=== PATIENT | female | born 1955 | race Caucasian/White ===

== ENCOUNTER → 2019-06-06 | Day surgery (SDC) | payer OTHER ==
[2019-06-03 15:14] LABS: BASOPHILS % 0.6 % (0.0-1.0); EOSINOPHILS # (AUTO) 0.1 (0.0-0.4); EOSINOPHILS % 1.6 % (0.0-6.0); HEMATOCRIT 41.2 % (34.2-44.1); LYMPHOCYTES # (AUTO) 1.2 (1.0-3.2); LYMPHOCYTES % 23.5 % (18.0-39.1); MEAN CORPUSCULAR HEMOGLOBIN 30.8 pg (28-32); MEAN CORPUSCULAR VOLUME 90.7 fL (81-99); MONOCYTES # (AUTO) 0.4 (0.2-0.8); MONOCYTES % 8.5 % (4.4-11.3); NEUTROPHILS # (AUTO) 3.3 (2.1-6.9); NEUTROPHILS % 65.4 % (38.7-80.0); PLATELET COUNT 226 x10e3/uL (140-360); RED BLOOD COUNT 4.54 x10e6/uL (3.6-5.1); RED CELL DISTRIBUTION WIDTH 13.7 % (11.7-14.4)
[2019-06-03 15:29] LABS: ANION GAP 17.5 mmol/L (8-16); BLOOD UREA NITROGEN 18 mg/dL (7-26); BUN/CREATININE RATIO 23 (6-25); CALCIUM 9.9 mg/dL (8.4-10.2); CARBON DIOXIDE 25 mmol/L (22-29); CHLORIDE 103 mmol/L (98-107); EST GLOMERULAR FILTRATION RATE > 60 ML/MIN (60-); GLUCOSE 95 mg/dL (74-118); POTASSIUM 4.5 mmol/L (3.5-5.1); SODIUM 141 mmol/L (136-145)
--- NOTE | 2019-06-03 15:50 | Diagnostic Imaging Report ---
EXAMINATION: CHEST 2 VIEWS INDICATION: Pre-operative COMPARISON: None FINDINGS: LINES/TUBES:None LUNGS:The lungs are well-inflated. No focal consolidation or pulmonary edema. PLEURA:No pleural effusion or pneumothorax. MEDIASTINUM:The cardiomediastinal silhouette appears normal in size and shape. Atherosclerotic calcifications of the thoracic aorta. BONES/SOFT TISSUES:No acute osseous injury. ABDOMEN:No free air under the diaphragm. IMPRESSION: No focal pneumonia or pulmonary edema. Signed by: Eyad Dobson MD on 06/03/2019 3:47 PM
[~2019-06-06] MED LIST: ASPIRIN325 MG PO; BUPIVACAINE HCL 0.5% INJ 30 ML VIAL INJ ONE; CEFAZOLIN SOD 1 GM/NS 50ML 100 ML IV ONE; DEXAMETHASONE SOD PHOS INJ 4 MG/ML VIAL ONE; FENTANYL CITRATE/PF 100MCG/2 ML INJ ONE; HYDROMORPHONE 2MG/ML 2 MG/ML ML ONE; LIDOCAINE HCL 2% LOCAL INJ 5 ML SDV VIAL INJ ONE; MIDAZOLAM HCL 2 MG/2 ML VIAL ONE; NEOSTIGMINE 1 MG/ML 10ML VIAL ONE; NORCO 7.5-3251 EACH PO; ONDANSETRON HCL INJ 2MG/ML 2ML 2 MG/ML VIAL ONE; PROPOFOL IV EMULSION 10 MG/ML 20 ML VIAL ONE; SEVOFLURANE INHAL SOLN 250 ML PEN BTL ONE; Z.0.LEVOTHYROXINE50 PO; Z.0.METOPROLOL TART2 PO; Z.0.TRICOR145 MG PO; [UNRECOGNIZED DRUG - OTHER] PO
--- OUTSIDE RECORDS SUMMARY | 2019-06-06 08:56 | XMS REPORT ---
Author Author [facility] Address Unknown Phone Unavailable Care Team Providers Care Director Of Home Health Services Name Role Phone DAPHNE SANTILLAN Unavailable Unavailable Problems This patient has no known problems. Allergies, Adverse Reactions, Alerts This patient has no known allergies or adverse reactions. Medications This patient has no known medications. Results Test Description Test Time Test Comments Text Results Atomic Results Result Comments CHEST 2 VIEWS 2019-06-03 15:46:00 [facility] [address] [place] [address] Patient Name: NIXON TONY MR #: [id number] : 1955 Age/Sex: 64/F Req #: [id number] Adm Physician: Ordered by: DAPHNE SANTILLAN DPM Report #: [id number] Location: OR Room/Bed: Procedure: [id number] DX/CHEST 2 VIEWS Exam Date: 06/03/19 Exam Time: 1440 REPORT STATUS: Signed EXAMINATION: CHEST 2 VIEWS INDICATION: Pre-operative COMPARISON: None FINDINGS: LINES/TUBES:None LUNGS:The lungs are well-inflated. No focal consolidation or pulmonary edema. PLEURA:No pleural effusion or pneumothorax. MEDIASTINUM:The cardiomediastinal silhouette appears normal in size and shape. Atherosclerotic calcifications of the thoracic aorta. BONES/SOFT TISSUES:No acute osseous injury. ABDOMEN:No free air under the diaphragm. IMPRESSION: No focal pneumonia or pulmonary edema. Signed by: Miriam Hatfield MD on 06/03/2019 3:47 PM Dictated By: MIRIAM HATFIELD MD 46 Transcribed By: EN on 06/03/191546 COPY TO: DAPHNE SANTILLAN DPM BREAST ULTRASOUND BILATERAL 2019-05-14 16:13:30 - BREAST ULTRASOUND BILATERALULTRASOUND OF BOTH BREASTS AND BOTH AXILLA: 05/14/2019CLINICAL: Late 12 month follow up/prior exam. Comparison is made to exam [facility] Real-time ultrasound of both breasts and both axilla was performed. No abnormalities were seen sonographically in the left breast or either axilla. There is a circumscribed slightly heterogeneous hypoechoic solid mass, 0.6 x 0.4 x 0.6 cm, wider than deeper in contour, in the 12 o'clock, right breast, 4 cm from the nipple. It is unassociated with abnormal shadowing or increased flow on color Doppler.No new mass or focus of parenchymal distortion was imaged. IMPRESSION: BENIGN Stable benign mass, a probable fibroadenoma, in the right breast. There is no sonographic evidence of malignancy. Resume annual screening mammography in one year. Corby Chan M.D. rb/:05/14/2019 16:13:30 Entry: - 05/15/2019 09:40:01Imaging Technologist: Tamara SHEFFIELD, [facility] BIRADS 1-2 Combo FU Letter Ultrasound BI-RADS: 2 Benign SCR MAMM BILATERAL JASON CAD DIGITAL 2019-05-14 15:45:52 - SCR MAMM BILATERAL JASON CAD DIGITALBILATERAL DIGITAL SCREENING MAMMOGRAM 3D/2D WITH CAD: 05/14/2019CLINICAL: Asymptomatic. Digital breast tomosynthesis was performed in addition to routine CC and MLO views. Current mammographic images were evaluated by either a BookMyShow M-Vu or a [employer]ias ImageChecker CAD (computer aided detection system). Comparison is made to exams dated 05/06/2018 mammogram, 2016 mammogram, and [facility]/11/2016 [facility]. The tissue of both breasts is heterogeneously dense. This may lower the sensitivity of mammography. There are benign calcifications in both breasts. No suspicious mass, architectural distortion, malignant type calcification, or lymph node abnormality detected. Breast architecture is stable compared to prior exams.IMPRESSION: BENIGNThere is no mammographic evidence of malignancy. Resume annual screening mammography in one year. Scheduled bilateral breast ultrasound to follow.Corby Chan M.D. rb/:05/14/2019 15:45:52 Entry: - 05/15/2019 09:39:33Imaging Technologist: Pratima SHEFFIELD, [facility] BI-RADS: 2 Benign
[2019-06-06 12:15] VITALS: BP 107/77
--- NOTE | 2019-06-06 20:29 | Operative Report ---
DATE OF PROCEDURE: 06/06/2019 SURGEON: Oziel Mesa DPM PREOPERATIVE DIAGNOSIS: Painful hardware, second metatarsal, right foot. POSTOPERATIVE DIAGNOSIS: Painful hardware, second metatarsal, right foot. TITLE OF THE OPERATION: Hardware removal, second metatarsal, right foot. PROCEDURE IN DETAIL: The patient was taken to the operating room in a mildly sedated state, placed on the operating table in supine position. Following induction of general anesthetic, the right lower extremity was elevated to 60 degrees to exsanguinate before inflating the pneumatic thigh tourniquet to 350 mmHg to create hemostasis. Foot was placed on the operating table prior to performing the following procedures: Procedure #1: Hardware removal, second metatarsal, right foot. A linear longitudinal incision was made overlying the dorsal aspect of the second metatarsal of the right foot. Incision was deepened via sharp and blunt dissection at the level of the dorsal capsular structure. Care was taken to identify and retract all vital structures encountered. The head of the second metatarsal remodeled utilizing an oscillating saw and bringing us down to the level of the screws, which were embedded . A hardware removal was performed. The bone was noted to be fractured and dorsal compromised with the extraction process, therefore human tissue allograft was used to fill the void, deep closure over the grafting was performed and skin closure as well. The patient tolerated the procedure well. The radiographs and photograph show adequate positioning. Release of the pneumatic thigh tourniquet showed a normal hyperemic flush to all digits of the right foot. The patient left the operating room with vital signs stable in apparent satisfactory condition having tolerated both the anesthetic and the procedure very well. JAZMINE Perez/HENRY /[id number]
== END | disposition home or self-care (01) ==
LOC: OR 08:54
PROVIDERS: ATTEND Podiatrist Foot Surgery
DX: T84.84XA Pain due to internal orthopedic prosthetic devices, implants and grafts, initial encounter (principal); I44.0 Atrioventricular block, first degree; Y83.8 Other surgical procedures as the cause of abnormal reaction of the patient, or of later complication, without mention of misadventure at the time of the procedure; Z88.6 Allergy status to analgesic agent; Z91.048 Other nonmedicinal substance allergy status; Z01.810 Encounter for preprocedural cardiovascular examination; Z01.812 Encounter for preprocedural laboratory examination; Z01.818 Encounter for other preprocedural examination; Z96.659 Presence of unspecified artificial knee joint
CPT/HCPCS: 20680; 36415; 71046; 76000; 80048; 85025; 93005; J0690; J1100; J1170; J2001; J2250; J2405; J2704; J2710; J3010; C1713; Q4100

== ENCOUNTER → 2022-09-18 | Outpatient (CLI) | payer MEDICARE, OTHER ==
[~2022-09-18] MED LIST changes: -BUPIVACAINE HCL 0.5% INJ 30 ML VIAL INJ ONE; -CEFAZOLIN SOD 1 GM/NS 50ML 100 ML IV ONE; -DEXAMETHASONE SOD PHOS INJ 4 MG/ML VIAL ONE; -FENTANYL CITRATE/PF 100MCG/2 ML INJ ONE; -HYDROMORPHONE 2MG/ML 2 MG/ML ML ONE; -LIDOCAINE HCL 2% LOCAL INJ 5 ML SDV VIAL INJ ONE; -MIDAZOLAM HCL 2 MG/2 ML VIAL ONE; -NEOSTIGMINE 1 MG/ML 10ML VIAL ONE; -ONDANSETRON HCL INJ 2MG/ML 2ML 2 MG/ML VIAL ONE; -PROPOFOL IV EMULSION 10 MG/ML 20 ML VIAL ONE; -SEVOFLURANE INHAL SOLN 250 ML PEN BTL ONE
== END ==
LOC: MRI 13:47
PROVIDERS: ATTEND Family Medicine
DX: S09.90XA Unspecified injury of head, initial encounter (principal)
CPT/HCPCS: 70551